=== PATIENT | male | born 1985 | race Caucasian/White ===

== ENCOUNTER → 2019-11-10 | Emergency (ER) | payer MEDICAID ==
[~2019-11-10] VITALS: Ht 188 cm; Wt 86.6 kg
[~2019-11-10] MED LIST: DOK100 MG PO; LEVETIRACETAM250 MG PO; ONDANSETRON ODT4 MG PO; ONDANSETRON ODT8 MG PO; OXYCODONE HCL5 MG PO; POTASSIUM CHLO10 ME1 PO; PROMETHAZINE HC25 M1 PO; PROMETHAZINE12.5 M1 PO; PROPRANOLOL HCL20 MG PO
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
== END ==
LOC: ED 09:00
DX: E86.0 Dehydration (principal); R11.2 Nausea with vomiting, unspecified; K59.00 Constipation, unspecified; C79.31 Secondary malignant neoplasm of brain; Z79.899 Other long term (current) drug therapy
CPT/HCPCS: 74018; 80053; 81001; 83690; 83735; 85025; 96361; 96374; 96375; 99284-25; J1885; J2405; J7030

== ENCOUNTER 2019-11-11 11:10 | Emergency (ER) | payer MEDICAID ==
[~2019-11-11] VITALS: Ht 188 cm; Wt 86.6 kg
--- OUTSIDE RECORDS SUMMARY | ~2019-11-11 | XMS | Encounter Summary ---
Demographics + + + | Address | [address] | | | [place] [address] | + + + | Home Phone | | + + + | Preferred Language | Unknown | + + + | Marital Status | Single | + + + | Confucianism Affiliation | NON | + + + | Race | White | + + + | Ethnic Group | Other Race | + + + Author + + + | Author | [facility] | + + + | Organization | [facility] | + + + | Address | Unknown | + + + | Phone | Unavailable | + + + Care Team Providers + +------+ + | Care Reed Man Name | Role | Phone | + +------+ + PCP | Unavailable | + +------+ + Encounter Details +--------+ + + + + | Date | Type | Department | Care Team | Description | +--------+ + + + + | 05/28/ | Lab | LAB [facility] [address] | Presley Rodrigues, | | | 2018 | Requisition | [address] | Ole Leroy MD | | | | | Rd [facility] [place] | [facility] | | | | | [address] | Assoc [address] [place] [address] | | | | | | [address] [place], | | | | | | [place] [address] | | | | | | [phone] | | | | | | | | +--------+ + + + + Social History + +-------+ +--------+------+ | Tobacco Use | Types | Packs/Day | Years | Date | | | | | Used | | + +-------+ +--------+------+ | Never Assessed | | | | | + +-------+ +--------+------+ + + + | Sex Assigned at | Date Recorded | | | | + + + | Not on file | | + + + documented as of this encounter Plan of Treatment Not on filedocumented as of this encounter Procedures + +--------+ + + + | Procedure Name | Priori | Date/Time | Associated Diagnosis | Comments | | | ty | | | | + +--------+ + + + | HSR PROCESS ONLY | Routin | 09/17/2018 | 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 | | | | | of axilla and upper | | | | | | limb lymph nodes | | | | | | (HCC) | | + +--------+ + + + documented in this encounter Results HSR PROCESS ONLY (09/17/2018 8:57 AM PDT) + + | Specimen | + + | Slide-Block - | | Slide-Block | + + + + + + + | Performing | Address | City/State/Zipcode | Phone Number | | Organization | | | | + + + + + | [facility] | [address] | [place] [address] | | | DIAGNOSTIC | [address] | | | | LABORATORIES | | | | + + + + + MELANOMA MUTATION PANEL (05/21/2018 12:01 AM PDT) + + + + + + | Component | Value | Ref Range | Performed | Pathologist | | | | | At | Signature | + + + + + + | MELANOMA | Positive. | | [facility] | | | MUTATION | | | DIAGNOSTIC | | | PANEL | | | | | | | | | LABORATORIE | | | | | | S | | + + + + + + | SAMPLE | Lymph node, right chest | | [facility] | | | TESTED | | | DIAGNOSTIC | | | | | | | | | | | | LABORATORIE | | | | | | S | | + + + + + + | REPORTED | Metastatic Melanoma | | [facility] | | | DIAGNOSIS | | | DIAGNOSTIC | | | | | | | | | | | | LABORATORIE | | | | | | S | | + + + + + + | INTERPRETAT | NRAS gene mutation | | [facility] | | | ION | screening: Positive for | | DIAGNOSTIC | | | | p.Q61K NRAS gene | | | | | | mutations are the second | | LABORATORIE | | | | most common oncogenic | | S | | | | alterations in malignant | | | | | | melanoma.1 A phase 2 | | | | | | trial showed that the | | | | | | MEK inhibitor | | | | | | binimetinib ([id number]) has | | | | | | activity in NRAS-mutant | | | | | | melanomas,2 but a phase | | | | | | 3 trial failed to show | | | | | | a survival advantage | | | | | | with binimetinib as | | | | | | compared with | | | | | | dacarbazine.3 However, | | | | | | the combination of | | | | | | binimetinib with a | | | | | | CDK4/6 inhibitor | | | | | | ([id number]) appears to have | | | | | | more significant | | | | | | activity.4 BRAF gene | | | | | | mutation screening: | | | | | | Negative for mutation. | | | | | | KIT gene mutation | | | | | | screening: Negative for | | | | | | mutation. Sample QC: | | | | | | Tumor cellularity in | | | | | | tested material: | | | | | | 85%Methods: The specimen | | | | | | is examined | | | | | | microscopically to | | | | | | identify areas of tumor | | | | | | suitable for testing. | | | | | | The tumor is then | | | | | | macro-dissected and DNA | | | | | | is extracted and | | | | | | purified. Selected exons | | | | | | of the BRAF, NRAS and | | | | | | KIT genes are amplified | | | | | | by PCR, and the products | | | | | | are screened for | | | | | | mutations by one of two | | | | | | methods: direct, | | | | | | bidirectional | | | | | | sequencing, or real-time | | | | | | PCR with high | | | | | | resolution melting curve | | | | | | analysis. DNA | | | | | | sequencing is used to | | | | | | confirm any mutations | | | | | | picked up by melting | | | | | | curve analysis. The | | | | | | estimated sensitivity of | | | | | | these methods is 20% | | | | | | mutant allele. | | | | | | Reference transcripts: | | | | | | BRAF - [id number]; NRAS | | | | | | - [id number]; KIT - | | | | | | [id number] References:1. | | | | | | Keerthi ADAIR et al. | | | | | | Distinct sets of genetic | | | | | | alterations in | | | | | | melanoma. N Engl J Med. | | | | | | 2004, | | | | | | 17;353(20):2137-47.2. | | | | | | Clarence TOVAR et al. | | | | | | [id number] for patients with | | | | | | advanced melanoma | | | | | | harbouring NRAS or | | | | | | [id number] BRAF mutations: a | | | | | | non-randomised, | | | | | | open-label phase 2 | | | | | | study. Lancet Oncol. | | | | | | 2012;14(3):249-56. | | | | | | 3. Isrrael Dow, et al. | | | | | | Binimetinib versus | | | | | | dacarbazine in patients | | | | | | with advanced | | | | | | NRAS-mutant melanoma | | | | | | (OZZY): a multicentre, | | | | | | open-label, randomised, | | | | | | phase 3 trial. [facility] | | | | | | Oncol. 2017;18(4):435.4. | | | | | | Elena ADAIR, et al. A | | | | | | phase 1b/2 study of | | | | | | [id number] in combination | | | | | | with binimetinib | | | | | | ([id number]) in patients | | | | | | with NRAS-mutant | | | | | | melanoma: early | | | | | | encouraging clinical | | | | | | activity. J Clin Oncol. | | | | | | 2014;32(Suppl 15):9009 | | | | + + + + + + | METHOD(S) | The specimen is examined | | [facility] | | | | microscopically to | | DIAGNOSTIC | | | | identify areas of tumor | | | | | | suitable for testing. | | LABORATORIE | | | | The tumor is | | S | | | | macro-dissected, and DNA | | | | | | is extracted, purified | | | | | | and amplified by PCR for | | | | | | the following | | | | | | tests:Gene Exon(s) | | | | | | Assay(s) Sensitivity | | | | | | SpecificityBRAF 15 HRM | | | | | | or [place] 20% (HRM); 1% | | | | | | ([place]) >99%NRAS 1,2 | | | | | | HRM or [place] 20% | | | | | | >99%KIT 11,13,17 HRM or | | | | | | [place] 20% >98%HRM: high | | | | | | resolution melting | | | | | | curve analysisSanger: | | | | | | Bi-directional Amee | | | | | | sequencing (an IMPREGNATING MACHINE OPERATOR-clamp | | | | | | for wild-type allele is | | | | | | used for BRAF exon 15). | | | | + + + + + + | REFERENCES | [address], | | [facility] | | | | Brianna ROTH, Coy | | DIAGNOSTIC | | | | SHU, Rafaela, et al. KIT | | | | | | as a Therapeutic Target | | LABORATORIE | | | | in Metastatic Melanoma. | | S | | | | EMILY 305(22):2327-34, | | | | | | 2010.2. Berlin J, Si L, | | | | | | Quincy Y, Rafael KT, Irving | | | | | | X, Pereira Y, Bk CL, et | | | | | | al. Phase II, | | | | | | Open-Label, Single-Arm | | | | | | Trial of Imatinib | | | | | | Mesylate in Patients | | | | | | With Metastatic Melanoma | | | | | | Harboring c-Kit | | | | | | Mutation or | | | | | | Amplification. J Clin | | | | | | Oncol. 2010 | | | | | | 20;29(21):9454-9.3. | | | | | | [address] | | | | | | M, Tomas Marin, et al. | | | | | | Sunitinib Therapy for | | | | | | Melanoma Patients with | | | | | | KIT Mutations. Clin | | | | | | Cancer Res. 2012 Mar | | | | | | 1;18(5):5653-631. Robbyi | | | | | | FS, Corless CL, | | | | | | Ian Dobbs, et al. | | | | | | Imatinib for melanomas | | | | | | harboring mutationally | | | | | | activated or amplified | | | | | | KIT arising on mucosal, | | | | | | acral, and chronically | | | | | | sun-damaged skin. J Clin | | | | | | Oncol. 2012 | | | | | | 10;31(26):2764-90.5. | | | | | | Gabby I, Hollie U, | | | | | | Mani B, et al. 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 Dermatology | | | | | | 220:77-81, 2009. 6. | | | | | | Nya Lawrence, Shayan, | | | | | | Jamie Salazar, Jeana Peters, | | | | | | et al. Activity of | | | | | | dasatinib against [id number] | | | | | | KIT mutant melanoma: | | | | | | molecular, cellular, and | | | | | | clinical correlates. | | | | | | Mol Cancer Ther | | | | | | [phone]:[phone]. | | | | + + + + + + | DISCLAIMER | This test was developed | | [facility] | | | | and its performance | | DIAGNOSTIC | | | | characteristics | | | | | | determined by the [facility] | | LABORATORIE | | | | [facility] | | S | | | | Laboratories. It has | | | | | | not been cleared or | | | | | | approved by the Food and | | | | | | Drug Administration. | | | | | | FDA approval is not | | | | | | required for the | | | | | | clinical use of the | | | | | | test, and therefore | | | | | | validation was done as | | | | | | required under the | | | | | | requirements of the | | | | | | Clinical Laboratory | | | | | | Improvement Act of 1988 | | | | | | (CLIA). The [facility] | | | | | | [email or web address] | | | | | | Laboratories are fully | | | | | | licensed by the state of | | | | | | [place] under CLIA and | | | | | | are accredited by the | | | | | | [employer] | | | | | | Pathologists (CAP). | | | | | | Stewardesses Teacher: | | | | | | Matthew Bourgeois, | | | | | | M.D., Ph.D | | | | | | Reviewed and | | | | | | electronically signed by | | | | | | REBECCA BENTON, | | | | | | MD06/04/2018 1:26 PM | | | | + + + + + + + + | Specimen | + + | Slide-Block - | | Slide-Block | + + + + + + + | Performing | Address | City/State/Zipcode | Phone Number | | Organization | | | | + + + + + | [facility] | [address] | [place] [address] | | | DIAGNOSTIC | [address] | | | | LABORATORIES | | | | + + + + + documented in this encounter Visit Diagnoses + + | Diagnosis | + + | Secondary and unspecified malignant neoplasm of axilla and upper limb lymph nodes | | (HCC) | + + documented in this encounter"
--- OUTSIDE RECORDS SUMMARY | ~2019-11-11 | XMS | Encounter Summary ---
Demographics + + + | Address | [address] | | | [place] [address] | + + + | Home Phone | | + + + | Preferred Language | Unknown | + + + | Marital Status | Single | + + + | Moravian Affiliation | NON | + + + | Race | White | + + + | Ethnic Group | Other Race | + + + Author + + + | Author | [facility] | + + + | Organization | [facility] | + + + | Address | Unknown | + + + | Phone | Unavailable | + + + Care Team Providers + +------+ + | Care Social Work Administrator Name | Role | Phone | + +------+ + PCP | Unavailable | + +------+ + Encounter Details +--------+ + + + + | Date | Type | Department | Care Team | Description | +--------+ + + + + | 05/17/ | Lab | LAB SURGICAL | Иван Marie MD | | | 2019 | Requisition | PATHOLOGY [address] | [facility] | | | | | [facility] | [facility] | | | | | [place], [place] | [facility] | | | | | [address] | [place] [address] | | | | | | [phone] | | | | | | | [...] | + +--------+ + + + | PATHOLOGY CONSULT - | Routin | 05/10/2018 | Plasmacytosis | Results for this | | REVIEW OUTSIDE | e | 9:00 AM | | procedure are in the | | SLIDES | | PST | | results section. | + +--------+ + + + documented in this encounter Results PATHOLOGY CONSULT - REVIEW OUTSIDE SLIDES (05/10/2018 9:00 AM PST) + + + + + + | Component | Value | Ref Range | Performed | Pathologist | | | | | At | Signature | + + + + + + | Clinical | Per report, the patient | | [facility] | | | History | is a 32 year-old man | | DEPARTMENT | | | | with enlarged lymph | | OF | | | | nodes. | | PATHOLOGY | | + + + + + + | Final | A. Lymph node, left | | [facility] | Electronically | | Pathologic | axilla, needle biopsy | | DEPARTMENT | signed by Ko Marin | | Diagnosis | ([facility] | | OF | MD Dylon on | | | Tong, [phone], | | PATHOLOGY | 05/20/2018 at | | | 05/10/18): - Plasma cell | | | 1:08 PM | | | neoplasm, see comment - | | | | | | Immunophenotype: CD138 | | | | | | and lambda positiveB: | | | | | | Lymph node, right | | | | | | supraclavicular, needle | | | | | | biopsy ([facility] | | | | | | [facility], | | | | | | [id number], 05/10/18): - | | | | | | Plasma cell neoplasm, | | | | | | see comment - | | | | | | Immunophenotype: CD138 | | | | | | and lambda | | | | | | positiveComment: We | | | | | | appreciate the | | | | | | opportunity to receive | | | | | | this case in | | | | | | consultation. Both | | | | | | biopsies show a dense | | | | | | plasma cell infiltrate | | | | | | with scattered atypical | | | | | | cells and focal | | | | | | necrosis. As sampled, | | | | | | the diagnostic | | | | | | possibilities remain | | | | | | broad and include | | | | | | plasmacytoma or plasma | | | | | | cell myeloma, as well as | | | | | | lymphomas with | | | | | | plasmacytic | | | | | | differentiation, such an | | | | | | marginal zone lymphoma | | | | | | or lymphoplasmacytic | | | | | | lymphoma and possibly | | | | | | other unsampled areas of | | | | | | transformation. The | | | | | | areas of necrosis are | | | | | | unusual but at least as | | | | | | sampled we do not see | | | | | | definitive features of | | | | | | plasmablastic lymphoma. | | | | | | We did not do | | | | | | additional IHC such as | | | | | | HHSV8 because our | | | | | | understanding is that | | | | | | additional biopsy may be | | | | | | performed. Correlation | | | | | | with other clinical and | | | | | | imaging findings is | | | | | | recommended.Portions are | | | | | | also seen by James Mendoza | | | | | | /hematopathologist. | | | | | | Case seen by:Veronica | | | | | | DO David - | | | | | | Hematopathology | | | | | | FellowKen MD Dylon - | | | | | | HematopathologistPatholo | | | | | | , [facility] & | | | | | | [facility] | | | | | | electronic signature | | | | | | indicates that I have | | | | | | personally reviewed all | | | | | | diagnostic slides, the | | | | | | gross and/or microscopic | | | | | | portion of this report | | | | | | and formulated the final | | | | | | diagnosis.MICROSCOPIC | | | | | | DESCRIPTION: The needle | | | | | | biopsies from both sites | | | | | | show a dense plasma | | | | | | cell infiltrate with | | | | | | focal necrosis. A subset | | | | | | of cells are larger | | | | | | with centrally located | | | | | | nuclei. | | | | | | IMMUNOHISTOCHEMICAL | | | | | | STAINS: The submitted | | | | | | immunohistochemical | | | | | | stains are reviewed. | | | | | | Appropriate reactive | | | | | | controls are verified. | | | | | | The plasma cells are | | | | | | positive for CD138 and | | | | | | are negative for CD3 and | | | | | | CD20. The Ki-67 | | | | | | proliferation index is | | | | | | 50%.IN SITU | | | | | | HYBRIDIZATION: The | | | | | | submitted kappa, lambda, | | | | | | and MARLENA-DALIA studies | | | | | | are reviewed. | | | | | | Appropriate RNA controls | | | | | | are verified. The | | | | | | plasma cells are | | | | | | lambda-restricted. | | | | | | MARLENA-DALIA is negative. | | | | + + + + + + | Materials | Specimen AReferring | | [facility] | | | Received | Institution: [facility] | | DEPARTMENT | | | | [facility] | | OF | | | | [facility]., [place], [place] | | PATHOLOGY | | | | [id number] Accession | | | | | | Number: [id number] | | | | | | Collection Date: | | | | | | 05/10/18Sublabeled H&E | | | | | | IHC's 1-2 2 10 | | | | + + + + + + | Ancillary | Analyte specific | | [facility] | | | Information | reagents are used in | | DEPARTMENT | | | | many laboratory tests | | OF | | | | necessary for standard | | PATHOLOGY | | | | medical care. This test | | | | | | was developed and its | | | | | | performance | | | | | | characteristics | | | | | | determined by [facility] | | | | | | laboratories. It has | | | | | | not been cleared or | | | | | | approved by the [place] Food | | | | | | and Drug Administration | | | | | | (FDA). FDA does not | | | | | | require this test to go | | | | | | through premarket FDA | | | | | | review. This test is | | | | | | used for clinical | | | | | | purposes. It should not | | | | | | be regarded as | | | | | | investigational or for | | | | | | research. This | | | | | | laboratory is certified | | | | | | under the Clinical | | | | | | Laboratory Improvement | | | | | | Amendments (CLIA) as | | | | | | qualified to perform | | | | | | high complexity clinical | | | | | | laboratory testing. | | | | + + + + + + + + | Specimen | + + | Slide-Block | + + + + + + + | Performing | Address | City/State/Zipcode | Phone Number | | Organization | | | | + + + + + | [facility] | [address] | [place] [address] | | | PATHOLOGY | [address] | | | + + + + + documented in this encounter Visit Diagnoses + + | Diagnosis | + + | Plasmacytosis | + + documented in this encounter"
--- OUTSIDE RECORDS SUMMARY | ~2019-11-11 | XMS | Encounter Summary ---
Demographics + + + | Address | [address] | | | [place] [address] | + + + | Home Phone | | + + + | Preferred Language | Unknown | + + + | Marital Status | Single | + + + | Tenriism Affiliation | NON | + + + | Race | White | + + + | Ethnic Group | Other Race | + + + Author + + + | Author | [facility] | + + + | Organization | [facility] | + + + | Address | Unknown | + + + | Phone | Unavailable | + + + Care Team Providers + +------+ + | Care Rotary Operator Name | Role | Phone | + +------+ + PCP | Unavailable | + +------+ + Encounter Details +--------+ + + + + | Date | Type | Department | Care Team | Description | +--------+ + + + + | 05/21/ | Document-Sc | LAB [facility] [address] | Presley Rodrigues, | | | 2019 | esthela | [facility] | Ole Leroy MD | | | | | [address] [facility] [place] | [facility] | | | | | [address] | Assoc [address] [place] [address] | | | | | | [address] [place], | | | | | | [place] [address] | | | | | | [phone] | | | | | | | [...] | + +--------+ + + + | OUTSIDE LAB - | | 05/21/2018 | | Results for this | | PATHOLOGY | | 12:00 AM | | procedure are in the | | | | PDT | | results section. | + +--------+ + + + documented in this encounter Results OUTSIDE LAB - PATHOLOGY (05/21/2018 12:00 AM PDT) + + + | Narrative | Performed At | + + + | | | + + + documented in this encounter Visit Diagnoses Not on filedocumented in this encounter"
--- OUTSIDE RECORDS SUMMARY | ~2019-11-11 | XMS | Clinical Summary ---
Demographics + + + | Address | [address] | | | [place] [address] | + + + | Home Phone | | + + + | Preferred Language | Unknown | + + + | Marital Status | Single | + + + | Voodoo Affiliation | NON | + + + | Race | White | + + + | Ethnic Group | Other Race | + + + Author + + + | Author | [facility] | + + + | Organization | [facility] | + + + | Address | Unknown | + + + | Phone | Unavailable | + + + Care Team Providers + +------+ + | Care Publicity Writer Name | Role | Phone | + +------+ + PCP | Unavailable | + +------+ + Source Comments [facility] is fully live on both [facility] and [facility] InPatient.[facility] Allergies Not on File Medications Not on file Active Problems Not on file Social History + +-------+ +--------+------+ | Tobacco [...] on file | | + + + Last Filed Vital Signs Not on file Plan of Treatment + + +-------+ + | Health Maintenance | Due Date | Last | Comments | | | | Done | | + + +-------+ + | Influenza (Flu) | | | | | vaccination (#1) | 0 | | | + + +-------+ + | Pneumococcal | Aged Out | | No longer eligible based on patient's age | | vaccination | | | to complete this topic | + + +-------+ + Results Not on filefrom Last 3 Months"
[~2019-11-11 11:10] MED LIST changes: -ONDANSETRON ODT8 MG PO; -PROMETHAZINE HC25 M1 PO
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
[2019-11-11] MEDS ORDERED: PROMETHAZINE HC25 M1 PO (16:40)
[2019-11-11] MEDS ORDERED: ONDANSETRON ODT8 MG PO (16:40)
== END 2019-11-11 17:02 | disposition home or self-care (01) ==
LOC: ED 11:10
DX: C79.31 Secondary malignant neoplasm of brain (principal); C80.1 Malignant (primary) neoplasm, unspecified; G40.909 Epilepsy, unspecified, not intractable, without status epilepticus
CPT/HCPCS: 70470; 80053; 83690; 83735; 85025; 96361; 99284-25; J1790; J1885; J1953; J2060; J2405; J2765; J7030; Q9967

== ENCOUNTER 2022-11-03 08:59 | Emergency (ER) | payer MEDICARE, OTHER ==
[~2022-11-03] VITALS: Ht 188 cm; Wt 86.6 kg
[~2022-11-03 08:59] MED LIST changes: +ONDANSETRON ODT8 MG PO; +PROMETHAZINE HC25 M1 PO
[2022-11-03] MEDS ORDERED: GABAPENTIN600 MG PO (09:17)
[2022-11-03] MEDS ORDERED: TRAZODONE HCL100 MG PO (09:17)
[2022-11-03] MEDS ORDERED: GEODON60 MG PO (09:18)
[2022-11-03 10:39] LABS: BASOPHILS 1.1 % (0-2); EOSINOPHILS 10.4 % (0-6); HEMATOCRIT 42.2 % (35.0-50.0); HEMOGLOBIN 14.1 g/dL (12.0-18.0); LYMPHOCYTES 29.5 % (24-44); MCH 31.9 (27-36); MCHC 33.4 g/dl (30-36); MCV 95.4 fl (81-99); MONOCYTES 4.9 % (0-12); NEUTROPHILS 54.1 % (39-80); PLATELET COUNT 183 K/uL (140-440); RBC 4.43 M/ul (4.3-5.7); RDW 14.4 (10.5-15.0)
[2022-11-03 10:41] LABS: INFLUENZA B NAA NEGATIVE (NEGATIVE); RESPIRATORY SYNCYTIAL VIR NAA NEGATIVE (NEGATIVE)
[2022-11-03 10:54] LABS: ALBUMIN 3.6 g/dL (3.4-5.0); ALBUMIN/GLOBULIN RATIO 1.13 (1.1-2.4); ANION GAP 10.1 (7-21); BILIRUBIN, TOTAL 1.1 ng/dL (0.2-1.0); BUN/CREATININE RATIO 7.89 (6.0-28.6); CALCIUM 8.9 mg/dL (8.5-10.1); CREATININE, SERUM 1.14 mg/dL (0.70-1.30); POTASSIUM 4.1 mmol/L (3.5-5.1); PROTEIN, TOTAL 6.8 g/dL (6.4-8.2)
[2022-11-03] MEDS ORDERED: PREDNISONE20 MG PO (11:43)
[2022-11-03] MEDS ORDERED: VENTOLIN HFA18 GM INH (11:43)
[2022-11-03 12:00] VITALS: BP 114/78
== END 2022-11-03 11:58 | disposition home or self-care (01) ==
LOC: ED 08:59
PROVIDERS: Emergency Medicine
DX: J40 Bronchitis, not specified as acute or chronic (principal); Z79.899 Other long term (current) drug therapy; Z20.822 Contact with and (suspected) exposure to COVID-19
CPT/HCPCS: 36415; 71046; 80053; 85025; 85379; 87502; 94640; 99284-25; A9270; C9803; J7512; U0002

== ENCOUNTER 2023-04-14 09:40 | Emergency (ER) | payer MEDICARE, OTHER ==
[~2023-04-14] VITALS: Ht 188 cm; Wt 107.5 kg
[~2023-04-14 09:40] MED LIST changes: +CYCLOBENZAPRINE5 MG PO; +GABAPENTIN600 MG PO; +GEODON60 MG PO; +PREDNISONE20 MG PO; +TRAZODONE HCL100 MG PO; +VENTOLIN HFA18 GM INH
[2023-04-14] MEDS ORDERED: ALBUTEROL/IPRATROPIUM 3 ML NEB INH ONE (10:00)
[2023-04-14] MEDS ORDERED: PREDNISONE20 MG PO (10:13)
[2023-04-14] MEDS ORDERED: ZITHROMAX250 MG PO (10:13)
[2023-04-14] MEDS ORDERED: predniSONE 20 MG TAB PO ONE (10:15)
[2023-04-14] MEDS ORDERED: ALBUTEROL SULFATE 0.5% 2.5 MG/0.5 ML VIAL INH ONE (10:45)
== END 2023-04-14 12:32 | disposition home or self-care (01) ==
LOC: ED 09:40
DX: J45.901 Unspecified asthma with (acute) exacerbation (principal); J06.9 Acute upper respiratory infection, unspecified; Z79.899 Other long term (current) drug therapy
CPT/HCPCS: 71045; 94640; J7512